=== PATIENT | female | born 1985 | race Hispanic/Latino ===

== ENCOUNTER 2017-03-08 19:56 | Emergency (ER) | payer OTHER, MEDICAID ==
[2017-03-08 20:06] VITALS: TEMP 98.4
--- NOTE | 2017-03-08 20:35 | C.PDOC ---
History Of Present Illness 31 y/o female who presents to the ED complaining of right side body pain after a mechanical fall at work at around 13:00. Patient reports she was working and the A/C from her job was leaking, which caused her slip and land in a "weird" angle more towards her right side. Patient denies any head trauma or loss of consciousness. Patient's LMP was on 03/02/2017. No other complaints were made. Time Seen by Provider: 03/08/17 20:16 Chief Complaint (Nursing): Upper Extremity Problem/Injury History Per: Patient History/Exam Limitations: no limitations Onset/Duration Of Symptoms: Hrs (6 to 8 hourse prior to arrival ), Sudden Onset Current Symptoms Are (Timing): Still Present Past Medical History Reviewed: Historical Data, Nursing Documentation, Vital Signs Vital Signs: Last Vital Signs Temp 98.4 F 03/08/17 20:02 Pulse 71 03/08/17 21:30 Resp 16 03/08/17 21:30 BP 124/68 03/08/17 21:30 Pulse Ox 98 03/08/17 21:30 - Medical History PMH: No Chronic Diseases Surgical History: Family History: States: Unknown Family Hx - Social History Hx Alcohol Use: No Hx Substance Use: No - Immunization History Hx Tetanus Toxoid Vaccination: No Hx Influenza Vaccination: No Hx Pneumococcal Vaccination: No Review Of Systems Constitutional: Negative for: Fever Cardiovascular: Negative for: Chest Pain Respiratory: Negative for: Shortness of Breath Gastrointestinal: Negative for: Vomiting Genitourinary: Negative for: Dysuria Musculoskeletal: Positive for: Back Pain, Other (generalized right sided body pain s/p mechanical fall) Physical Exam - Physical Exam Appears: Well, Non-toxic, No Acute Distress Skin: Normal Color, Warm, Dry, No Ecchymosis Head: Atraumatic, Normacephalic Eye(s): bilateral: Normal Inspection Nose: Normal Oral Mucosa: Moist Neck: Normal ROM Chest: Symmetrical Cardiovascular: Rhythm Regular, No Murmur Respiratory: Normal Breath Sounds, No Wheezing Back: No CVA Tenderness, No Vertebral Tenderness, No Decreased ROM, Paraspinal Tenderness (paralumbar tenderness, more on right side), Other (no coccyx tenderness. no swelling or ecchymosis) Extremity: Normal ROM, No Tenderness, No Pedal Edema, No Deformity, No Swelling Neurological/Psych: Oriented x3, Normal Speech, Normal Motor Gait: Steady ED Course And Treatment O2 Sat by Pulse Oximetry: 100 (room air) Pulse Ox Interpretation: Normal Medical Decision Making Medical Decision Makin03/08/2017 Impression: 31 y/o female with paralumbar tenderness, more on right side. No coccyx tenderness. no swelling or ecchymosis Plan: -- Lumbar Spine x-ray -- Motrin -- Reassess and disposition Progress Notes: XRay reviewed with no acute fx. Patient feeling better and comfortable with discharge. Recommend rest, ice and analgesics. Disposition Counseled Patient/Family Regarding: Diagnosis, Need For Followup, Rx Given - Disposition Referrals: Leonard Farris MD [Medical Doctor] - Disposition: HOME/ ROUTINE Disposition Time: 21:10 Condition: STABLE Additional Instructions: Your xray was normal, no fracture. Please apply ice to area 15 minutes three times a day. Take Motrin as needed for pain every 6 hours, with food to not upset stomach. Follow up with orthopedic if pain persists over one week. Prescriptions: Ibuprofen [Motrin] 600 mg PO Q8 #30 tab Instructions: Contusion in Adults (DC) Forms: [employer] (I[place]ic) - POA Present On Arrival: None - Clinical Impression Clinical Impression: Contusion of lower back - Scribe Statement The provider has reviewed the documentation as recorded by the Scribe 03/08/2017 Scribe Attestation: Sanna eLon MD Scribe Attestation: All medical record entries made by the Scribe were at my direction and personally dictated by me. I have reviewed the chart and agree that the record accurately reflects my personal performance of the history, physical exam, medical decision making, and the department course for this patient. I have also personally directed, reviewed, and agree with the discharge instructions and disposition.
[2017-03-08 21:31] VITALS: BP 124/68; PULSE 71; RESP 16
--- NOTE | 2017-03-09 10:21 | RAD ---
Lumbar spine three views History: Wet floor. Comparison: None available. Findings: There appears to be some mild rotation on the sagittal view, limiting evaluation for listhesis. Disc space narrowing with endplate sclerosis and osteophytosis at the T9-10, T10-11, and T11-12 levels. 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 Intrauterine device in place. Calcified phleboliths in the pelvis. Impression: Degenerative changes. If pain persists, consider MRI. Additional findings as above.
[2017-03-10 15:51] VITALS: O2SAT 100
== END 2017-03-08 21:30 | disposition home or self-care (01) ==
LOC: C.ER 19:56
DX: S30.0XXA Contusion of lower back and pelvis, initial encounter (principal); W01.0XXA Fall on same level from slipping, tripping and stumbling without subsequent striking against object, initial encounter; Y99.0 Civilian activity done for income or pay

== ENCOUNTER 2017-06-05 23:25 | Emergency (ER) | payer MEDICAID, OTHER ==
--- NOTE | 2017-06-06 00:19 | C.PDOC ---
History Of Present Illness 32 yo female c/o left ankle pain since this morning after she twisted her ankle. Pt notes that when she twisted , she fell on her knees, got up and continued walking her children to school. She tried to RICE is at home and swelling worsened prompting ED visit. No other trauma or injury. No head trauma. No change in sensation. Time Seen by Provider: 06/05/17 23:59 Chief Complaint (Nursing): Lower Extremity Problem/Injury History Per: Patient History/Exam Limitations: no limitations Onset/Duration Of Symptoms: Hrs Current Symptoms Are (Timing): Still Present Past Medical History Vital Signs: Last Vital Signs Temp 98.0 F 06/05/17 23:54 Pulse 88 06/05/17 23:54 Resp 20 06/05/17 23:54 BP 104/70 06/05/17 23:54 Pulse Ox 100 06/06/17 00:19 Surgical History: Family History: States: Unknown Family Hx - Social History Hx Alcohol Use: No Hx Substance Use: No - Immunization History Hx Tetanus Toxoid Vaccination: No Hx Influenza Vaccination: No Hx Pneumococcal Vaccination: No Review Of Systems Constitutional: Negative for: Fever Neurological: Negative for: Weakness, Numbness Physical Exam - Physical Exam Appears: Well, Non-toxic, No Acute Distress Skin: Warm, Dry Head: Atraumatic, Normacephalic Eye(s): bilateral: Normal Inspection, EOMI Nose: Normal Oral Mucosa: Moist Neck: Normal, Normal ROM, Supple Chest: Symmetrical Respiratory: No Accessory Muscle Use Back: Normal Inspection Extremity: Normal ROM, Tenderness ((+) lateral ascpect of ankle with swelling ) , Capillary Refill (<2sec), Swelling Pulses: Left Dorsalis Pedis: Normal, Right Dorsalis Pedis: Normal Neurological/Psych: Oriented x3, Normal Speech, Normal Motor, Normal Sensation ED Course And Treatment O2 Sat by Pulse Oximetry: 100 - Other Rad Ankle XR X-Ray: Interpreted by Me, Viewed By Me Interpretation: No fx or dislocation Progress Note: Motrin ordered. Stirrup splint and crutches given by transportation engineering technician. Instructed RICE and follow up with ortho in 1-2 days. Disposition - Disposition Referrals: Georges Sanchez III, MD [Staff Provider] - Disposition: HOME/ ROUTINE Disposition Time: 01:30 Condition: STABLE Additional Instructions: Rest, ice and elevate the area. Follow up with bone doctor in 1-2 days. Return to ER if symptoms persist or worsen . Instructions: Ankle Sprain (ED) Forms: [facility] (Slovak) - Clinical Impression Clinical Impression: Ankle sprain
[2017-06-06 02:05] VITALS: BP 149/80; PULSE 78; RESP 18; TEMP 97.3; O2SAT 98
--- NOTE | 2017-06-06 11:10 | RAD ---
PROCEDURE: Left Ankle Radiographs. HISTORY: Trauma COMPARISON: None FINDINGS: BONES: Bone alignment and mineralization are normal. There is no acute displaced fracture or bone destruction. There is a small plantar calcaneal spur. JOINTS: Normal. There is a small joint effusion. Ankle mortise maintained. Talar dome intact SOFT TISSUES: There is mild lateral soft tissue swelling. OTHER FINDINGS: None. IMPRESSION: No acute fracture or dislocation. Small joint effusion
== END 2017-06-06 02:03 | disposition home or self-care (01) ==
LOC: C.ER 23:25
DX: S93.402A Sprain of unspecified ligament of left ankle, initial encounter (principal); X50.1XXA Overexertion from prolonged static or awkward postures, initial encounter

== ENCOUNTER 2018-07-07 12:25 | Outpatient (CLI) | payer MEDICAID | END 2018-07-07 12:26 | disposition home or self-care (01) | LOC: C.RADIC 12:25 ==